=== PATIENT | female | born 1985 | race Caucasian/White ===

== ENCOUNTER 2019-10-22 01:40 | Inpatient (IN) | payer BC ==
[~2019-10-22] VITALS: Ht 162.6 cm; Wt 80.0 kg
[2019-10-22] MEDS ORDERED: D5%-LACTATED RINGERS 1,000 ML IV SCH (02:13)
[2019-10-22] MEDS ORDERED: OXYTOCIN 30U/ 0.9% NaCL 500ML 500 ML IV ONE (02:13)
[2019-10-22] MEDS ORDERED: MISOPROSTOL 200 MCG TABLET ONE ×2 (02:17→07:26)
[2019-10-22] MEDS ORDERED: OXYTOCIN 30U/ 0.9% NaCL 500ML 500 ML ONE ×2 (02:17→15:21)
[2019-10-22] MEDS ORDERED: LIDOCAINE 1%, 20ML ONE (02:17)
[2019-10-22] MEDS ORDERED: METOCLOPRAMIDE 5 MG/ML, 2ML IVPush PRN (02:30)
[2019-10-22] MEDS ORDERED: TERBUTALINE 1 MG/ML, 1ML SQ PRN (02:30)
[2019-10-22] MEDS ORDERED: ALUMINUM/MAG/SIMETHICONE 30 ML UDC PO PRN (02:30)
[2019-10-22] MEDS ORDERED: CALCIUM CARBONATE 500 MG TAB.CHEW PO PRN (02:30)
[2019-10-22] MEDS ORDERED: TERBUTALINE 1 MG/ML, 1ML IVPush PRN (02:30)
[2019-10-22] MEDS ORDERED: SODIUM CHLORIDE FLUSH 10ML SYR IVF PRN (02:30)
[2019-10-22] MEDS ORDERED: SODIUM CITRATE/CITRIC ACID 30 ML UDC PO PRN (02:30)
[2019-10-22] MEDS ORDERED: FENTANYL PF 100 MCG/2ML IV PRN (02:30)
[2019-10-22] MEDS ORDERED: ONDANSETRON 2MG/ML, 2ML IVPush PRN (02:30)
[2019-10-22 02:57] LABS: BASOPHILS # (AUTO) 0.03 x10^3/uL (0-0.1); BASOPHILS % (AUTO) 0 % (0-1); EOSINOPHILS # (AUTO) 0.01 x10^3/uL (0-0.4); EOSINOPHILS % (AUTO) 0 % (1-7); LYMPHOCYTES % (AUTO) 11 % (22-44); MD NO; MEAN CORPUSCULAR HEMOGLOBIN 34.5 pg (27.0-34.8); MEAN CORPUSCULAR HGB CONC 33.4 g/dL (32.4-35.8); MEAN CORPUSCULAR VOLUME 103.2 fL (80-100); MEAN PLATELET VOLUME 9.5 fL (7.4-10.4); MONOCYTES # (AUTO) 0.65 x10^3/uL (0.2-0.8); MONOCYTES % (AUTO) 5 % (2-9); NEUTROPHILS # (AUTO) 12.06 x10^3/uL (1.8-6.8); NEUTROPHILS % (AUTO) 84 % (42-75); PLATELET COUNT 224 x10^3/uL (130-400); RED CELL DISTRIBUTION WIDTH 12.8 % (9.6-15.2)
[2019-10-22 03:00] VITALS: BP 142/92
[2019-10-22] MEDS ORDERED: FENTANYL PF 100 MCG/2ML ONE ×6 (07:22→18:04)
[2019-10-22] MEDS: FENTANYL PF 100 MCG/2ML IVPush PRN ×4 (07:36→11:50)
[2019-10-22] MEDS ORDERED: PREN1TAB60 PO (08:08)
[2019-10-22] MEDS ORDERED: VIT1CAPS44 PO (08:09)
[2019-10-22] MEDS ORDERED: CHOL400C PO (08:12)
[2019-10-22] MEDS ORDERED: FENTANYL/BUPIV./NS/PF 250 ML EPIDCONT SCH ×2 (13:22→15:04)
[2019-10-22] MEDS ORDERED: FENTANYL PF 500 MCG, BUPIVACAINE/PF 0.5%, 30ML 62.5 ML in SODIUM CHLORIDE 0.9% 177.5 ML EPIDCONT SCH (13:30)
[2019-10-22] MEDS: LACTATED RINGERS 1,000 ML IV SCH ×3 (13:39→19:52)
[2019-10-22] MEDS ORDERED: BUPIVACAINE 0.25% ONE (13:50)
[2019-10-22] MEDS ORDERED: AZITHROMYCIN 500 MG in SODIUM CHLORIDE 0.9% 250 ML IV ONE (14:30)
[2019-10-22] MEDS ORDERED: LACTATED RINGERS 1,000 ML IV SCH ×3 (15:04→18:19)
[2019-10-22] MEDS ORDERED: METOCLOPRAMIDE 5 MG/ML, 2ML ONE (15:21)
[2019-10-22] MEDS ORDERED: SODIUM CITRATE/CITRIC ACID 30 ML UDC ONE (15:21)
[2019-10-22] MEDS ORDERED: EPHEDRINE 50 MG/ML, 1ML IVPush PRN (15:30)
[2019-10-22] MEDS ORDERED: METOCLOPRAMIDE 5 MG/ML, 2ML IV ONE (18:00)
[2019-10-22] MEDS ORDERED: SODIUM CITRATE/CITRIC ACID 30 ML UDC PO ONE (18:00)
[2019-10-22] MEDS ORDERED: morphine SULFATE/PF 0.5 MG/ML, 10ML ONE (18:04)
[2019-10-22] MEDS ORDERED: LIDOCAINE-MPF 2% ,5ML ONE (18:14)
[2019-10-22] MEDS ORDERED: PHENYLEPHRINE 10 MG/ML ONE (18:14)
[2019-10-22] MEDS ORDERED: OXYTOCIN 10 UNITS/ML, 1ML ONE (18:14)
[2019-10-22] MEDS ORDERED: EPHEDRINE 50 MG/ML, 1ML ONE (18:14)
[2019-10-22] MEDS ORDERED: BUPIVACAINE/PF 0.25% ONE (18:14)
[2019-10-22] MEDS ORDERED: CEFAZOLIN 1,000 MG ONE (18:14)
[2019-10-22] MEDS ORDERED: WATER-INJECTION,STERILE 10 ML IV ONE (18:14)
[2019-10-22] MEDS ORDERED: OXYTOCIN 30U/ 0.9% NaCL 500ML 500 ML IV SCH (18:19)
[2019-10-22] MEDS ORDERED: morphine SULFATE 10 MG/ML, 1ML IV PRN (18:30)
[2019-10-22] MEDS ORDERED: ACETAMINOPHEN 325 MG TABLET PO PRN ×2 (18:30)
[2019-10-22] MEDS ORDERED: CARBOPROST TROMETHAMINE 250 MCG/ML, 1ML IM PRN (18:30)
[2019-10-22] MEDS ORDERED: MISOPROSTOL 200 MCG TABLET PR PRN ×2 (18:30→20:00)
[2019-10-22] MEDS ORDERED: OXYcodone IR 5MG TABLET PO PRN (18:30)
[2019-10-22] MEDS ORDERED: ONDANSETRON 2MG/ML, 2ML IV PRN (18:30)
[2019-10-22] MEDS ORDERED: KETOROLAC 30 MG/1 ML IV SCH (18:30)
[2019-10-22 19:48] LABS: MEAN CORPUSCULAR HEMOGLOBIN 34.4 pg (27.0-34.8); MEAN CORPUSCULAR HGB CONC 33.2 g/dL (32.4-35.8); MEAN CORPUSCULAR VOLUME 103.6 fL (80-100); MEAN PLATELET VOLUME 8.6 fL (7.4-10.4); PLATELET COUNT 211 x10^3/uL (130-400); RED BLOOD COUNT 3.06 x10^6/uL (3.82-5.3); RED CELL DISTRIBUTION WIDTH 12.9 % (9.6-15.2)
[2019-10-22 20:05] LABS: BASOPHILS # (AUTO) 0.02 x10^3/uL (0-0.1); BASOPHILS % (AUTO) 0 % (0-1); EOSINOPHILS % (AUTO) 0 % (1-7); LYMPHOCYTES # (AUTO) 1.09 x10^3/uL (1-3.4); LYMPHOCYTES % (AUTO) 5 % (22-44); MD SCAN; MONOCYTES # (AUTO) 0.88 x10^3/uL (0.2-0.8); MONOCYTES % (AUTO) 4 % (2-9); NEUTROPHILS # (AUTO) 20.71 x10^3/uL (1.8-6.8); NEUTROPHILS % (AUTO) 91 % (42-75)
[2019-10-22] MEDS ORDERED: OXYcodone/APAP 5/325MG TABLET ONE (20:55)
[2019-10-22] MEDS: OXYcodone/APAP 5/325MG TABLET PO PRN (20:56)
[2019-10-22 21:01] VITALS: BP 117/71
[2019-10-22 21:10] VITALS: BP 111/65
[2019-10-22 21:18] VITALS: BP 123/63
[2019-10-22 21:26] VITALS: BP 120/65
[2019-10-22 22:09] VITALS: BP 124/65
[2019-10-22] MEDS ORDERED: IBUPROFEN 600 MG TABLET ONE (23:18)
[2019-10-22] MEDS: IBUPROFEN 600 MG TABLET PO PRN (23:19)
[2019-10-23 00:14] LABS: MEAN CORPUSCULAR HEMOGLOBIN 33.7 pg (27.0-34.8); MEAN CORPUSCULAR HGB CONC 33.7 g/dL (32.4-35.8); MEAN PLATELET VOLUME 8.9 fL (7.4-10.4); PLATELET COUNT 180 x10^3/uL (130-400); RED BLOOD COUNT 2.86 x10^6/uL (3.82-5.3); RED CELL DISTRIBUTION WIDTH 14.6 % (9.6-15.2)
[2019-10-23 00:28] LABS: BAND#(MANUAL) 1.36 x10^3/uL; BANDS%(MANUAL) 6 % (0-7); LYMPH#(MANUAL) 0.91 x10^3/uL (1-3.4); LYMPHS% (MANUAL) 4 % (22-44); MD YES; MONOS#(MANUAL) 0.45 x10^3/uL (0.3-2.7); MONOS% (MANUAL) 2 % (2-9); SEG#(MANUAL) 19.98 x10^3/uL (1.8-6.8); SEGS% (MANUAL) 88 % (42-75)
[2019-10-23 00:29] LABS: <PLATELET ESTIMATE> ADEQUATE; ANISOCYTOSIS 1+; LARGE PLATELETS 1+; POLYCHROMASIA 1+
[2019-10-23] MEDS ORDERED: CEFAZOLIN 2,000 MG in SODIUM CHLORIDE 0.9% 50 ML IV SCH (01:00)
[2019-10-23] MEDS ORDERED: CEFAZOLIN PMX 2GM/50ML 50 ML IVPB SCH (01:00)
[2019-10-23] MEDS ORDERED: OXYcodone/APAP 5/325MG TABLET ONE (04:41)
[2019-10-23] MEDS: OXYcodone/APAP 5/325MG TABLET PO PRN ×4 (04:42→19:50)
[2019-10-23 06:18] LABS: MEAN CORPUSCULAR HEMOGLOBIN 33.6 pg (27.0-34.8); MEAN CORPUSCULAR HGB CONC 33.2 g/dL (32.4-35.8); MEAN CORPUSCULAR VOLUME 101.2 fL (80-100); MEAN PLATELET VOLUME 9.4 fL (7.4-10.4); PLATELET COUNT 174 x10^3/uL (130-400); RED BLOOD COUNT 2.68 x10^6/uL (3.82-5.3); RED CELL DISTRIBUTION WIDTH 14.6 % (9.6-15.2)
[2019-10-23 06:51] LABS: MD YES
[2019-10-23 07:01] LABS: ANISOCYTOSIS 1+; BANDS%(MANUAL) 2 % (0-7); LYMPH#(MANUAL) 2.81 x10^3/uL (1-3.4); LYMPHS% (MANUAL) 14 % (22-44); MONOS% (MANUAL) 4 % (2-9); SEG#(MANUAL) 16.08 x10^3/uL (1.8-6.8); SEGS% (MANUAL) 80 % (42-75)
[2019-10-23 07:02] LABS: <PLATELET ESTIMATE> ADEQUATE; <PLT MORPHOLOGY> NORMAL PLT MORPH
[2019-10-23 07:40] VITALS: BP 122/71
[2019-10-23] MEDS: PRENATAL VIT/IRON/FA 1 EACH TABLET PO SCH (09:00)
[2019-10-23] MEDS: IBUPROFEN 600 MG TABLET PO PRN ×3 (10:49→21:54)
[2019-10-23 12:00] VITALS: BP 137/75
[2019-10-23 16:00] VITALS: BP 130/72
[2019-10-23 16:10] LABS: BASOPHILS # (AUTO) 0.03 x10^3/uL (0-0.1); BASOPHILS % (AUTO) 0 % (0-1); EOSINOPHILS % (AUTO) 0 % (1-7); LYMPHOCYTES # (AUTO) 1.76 x10^3/uL (1-3.4); LYMPHOCYTES % (AUTO) 12 % (22-44); MD NO; MEAN CORPUSCULAR HEMOGLOBIN 33.8 pg (27.0-34.8); MEAN CORPUSCULAR HGB CONC 33.3 g/dL (32.4-35.8); MEAN CORPUSCULAR VOLUME 101.6 fL (80-100); MEAN PLATELET VOLUME 8.2 fL (7.4-10.4); MONOCYTES # (AUTO) 0.75 x10^3/uL (0.2-0.8); MONOCYTES % (AUTO) 5 % (2-9); NEUTROPHILS # (AUTO) 11.85 x10^3/uL (1.8-6.8); NEUTROPHILS % (AUTO) 82 % (42-75); PLATELET COUNT 178 x10^3/uL (130-400); RED BLOOD COUNT 2.45 x10^6/uL (3.82-5.3); RED CELL DISTRIBUTION WIDTH 14.5 % (9.6-15.2)
[2019-10-23 19:50] VITALS: BP 124/86
[2019-10-23] MEDS: DOCUSATE 100 MG CAPSULE PO PRN (19:50)
[2019-10-23] MEDS: SIMETHICONE 80 MG CHEW TAB PO PRN (19:50)
[2019-10-24] MEDS: OXYcodone/APAP 5/325MG TABLET PO PRN ×5 (00:20→19:09)
[2019-10-24] MEDS: IBUPROFEN 600 MG TABLET PO PRN ×3 (05:03→19:09)
[2019-10-24] MEDS: PRENATAL VIT/IRON/FA 1 EACH TABLET PO SCH (08:07)
[2019-10-24] MEDS: DOCUSATE 100 MG CAPSULE PO PRN ×2 (08:07→19:09)
[2019-10-24 08:25] VITALS: BP 121/78
[2019-10-24] MEDS: SIMETHICONE 80 MG CHEW TAB PO PRN (19:08)
[2019-10-24 19:30] VITALS: BP 131/86
[2019-10-25] MEDS: IBUPROFEN 600 MG TABLET PO PRN (03:41)
[2019-10-25] MEDS: OXYcodone/APAP 5/325MG TABLET PO PRN ×2 (07:32→11:30)
[2019-10-25 07:35] VITALS: BP 147/84
[2019-10-25] MEDS: PRENATAL VIT/IRON/FA 1 EACH TABLET PO SCH (09:00)
[2019-10-25] MEDS: DOCUSATE 100 MG CAPSULE PO PRN (11:09)
[2019-10-25] MEDS ORDERED: OXYC-302 PO (12:48)
[2019-10-25] MEDS ORDERED: IBUP-1222 PO (12:48)
== END 2019-10-25 14:00 | disposition home or self-care (01) | DRG 788 ==
LOC: LDOP 01:40 → LDIP 02:21 → 2NE 22:01 → 2NW 10-23 10:45
PROVIDERS: ADMIT Obstetrics & Gynecology; ATTEND Obstetrics & Gynecology
PROC: 10D00Z1 Extraction of Products of Conception, Low, Open Approach (ICD-10-PCS; principal; 2019-10-22)
PROC: 30233N0 Transfusion of Autologous Red Blood Cells into Peripheral Vein, Percutaneous Approach (ICD-10-PCS; 2019-10-22)
DX: O62.1 Secondary uterine inertia (principal); O63.1 Prolonged second stage (of labor); O77.0 Labor and delivery complicated by meconium in amniotic fluid; Z37.0 Single live birth; Z3A.41 41 weeks gestation of pregnancy; Z88.8 Allergy status to other drugs, medicaments and biological substances
CPT/HCPCS: 36415; J7121; S0020; 85025; 86592; 86850; 86900; 86923; G0378; J0456; J0690; J2274; J3010; J3490; J2370; J2590; J2765; J7050; J7120; P9016

== ENCOUNTER 2020-02-22 14:03 | Emergency (ER) | payer BC ==
[~2020-02-22] VITALS: Ht 170.2 cm; Wt 68.0 kg
[~2020-02-22 14:03] MED LIST: CHOL400C PO; IBUP-1222 PO; OXYC-302 PO; PREN1TAB60 PO; VIT1CAPS44 PO
--- NOTE | 2020-02-22 14:15 | NUR ---
PT ARRIVED IN EMS RESTRAINTS. RESTRAINT PROCEDURE EXPLAINED TO PT PER JULIAN BARRAZA. SECURITY OUTSIDE ROOM. RESTRAINTS REMOVED. PT STOOD UP & TRIED TO EXIT ROOM; INSTRUCTED TO RETURN TO [facility]; PT REFUSED. SECURITY CALLED IN, ASSISTED PT TO [facility]. PT FIGHTING SECURITY, RESTRAINTS PLACED. PT YELLING "I NEED JONES, I NEED JONES!" "I NEED TEQUILLA" "I NEED MONEY".
--- NOTE | 2020-02-22 14:25 | NUR ---
PT UNCOOPERATIVE; FIGHTING AGAINST RESTRAINTS. CONTINUES TO STATE "I NEED JONES" "I NEED TEQUILLA" "I NEED MONEY" "I WANT OUT OF HERE". PT INFORMED SHE MAY NOT LEAVE AT THIS TIME.
--- NOTE | 2020-02-22 14:28 | NUR ---
BELONGINGS BAGGED (PANTS, SOCKS, SLIPPERS, SILVER-COLORED WATCH, SUNGLASSES); WILL BE PLACED IN ED LOCKER. TOP & BRA WERE CUT OFF.
--- NOTE | 2020-02-22 14:35 | NUR ---
CAROLE MCBRIDE BS. PT WAS BRIEFLY COOPERATIVE WITH QUESTIONS. CONTINUES TO FIGHT RESTRAINTS.
--- NOTE | 2020-02-22 14:51 | NUR ---
PT CONTINUING TO YELL OUT, VERY LOUDLY AND TO FIGHT RESTRAINTS. PROVIDER NOTIFIED.
[2020-02-22] MEDS ORDERED: ZIPRASIDONE 20 MG INJ IM ONE ×2 (14:52→15:00)
--- NOTE | 2020-02-22 15:02 | NUR ---
ANGELINA GIVEN PER EMAR. PT CONTINUING TO YELL OUT. PERSON'S NAME "NO MORE FUCKING JONES!" "MY IS DAPHNIE MUSK".
[2020-02-22 15:25] LABS: BASOPHILS # (AUTO) 0.02 x10^3/uL (0-0.1); BASOPHILS % (AUTO) 0 % (0-1); EOSINOPHILS % (AUTO) 0 % (1-7); LYMPHOCYTES # (AUTO) 1.15 x10^3/uL (1-3.4); LYMPHOCYTES % (AUTO) 9 % (22-44); MD NO; MEAN CORPUSCULAR HEMOGLOBIN 31.1 pg (27.0-34.8); MEAN CORPUSCULAR VOLUME 94.1 fL (80-100); MEAN PLATELET VOLUME 8.2 fL (7.4-10.4); MONOCYTES # (AUTO) 0.42 x10^3/uL (0.2-0.8); MONOCYTES % (AUTO) 3 % (2-9); NEUTROPHILS # (AUTO) 11.76 x10^3/uL (1.8-6.8); NEUTROPHILS % (AUTO) 88 % (42-75); PLATELET COUNT 324 x10^3/uL (130-400); RED BLOOD COUNT 4.65 x10^6/uL (3.82-5.3); RED CELL DISTRIBUTION WIDTH 15.1 % (9.6-15.2)
--- NOTE | 2020-02-22 15:32 | NUR ---
PT CONTINUES TO YELL AND STRUGGLE AGAINST RESTRAINTS. CALMLY INFORMED PT THAT HER YELLING IS UNACCEPTABLE AND SHE NEEDS TO STOP. PT DID NOT REPLY.
[2020-02-22 15:37] LABS: ALBUMIN 4.1 g/dL (3.4-5.0); CALCIUM 9.2 mg/dL (8.5-10.1); CHLORIDE 100 mmol/L (98-107)
--- NOTE | 2020-02-22 15:44 | NUR ---
WATER OFFERED TO PT; PT REFUSED. PT CONTINUING TO YELL OUT AND STRUGGLE AGAINST RESTRAINTS. INSISTING ON BEING LET OUT OF RESTRAINTS. DENIES DRUG USE. DENIES MED HX.
[2020-02-22 15:45] LABS: ALANINE AMINOTRANSFERASE 30 U/L (12-78); ALKALINE PHOSPHATASE 85 U/L (45-117); ANION GAP 15 mmol/L (5-15); BILIRUBIN,TOTAL 0.5 mg/dL (0.2-1.0); TOTAL PROTEIN 8.1 g/dL (6.4-8.2)
[2020-02-22 15:46] LABS: SALICYLATE LEVEL < 1.7 mg/dL (2.8-20.0)
--- NOTE | 2020-02-22 15:46 | NUR ---
PT YELLING AT THE TOP OF HER VOICE SAYING "I NEED SOME FUCKING JONES!" "MY IS DAPHNIE MUSK" "I NEED MY DAUGHTER".
[2020-02-22] MEDS ORDERED: DIPHENHYDRAMINE 50 MG/ML, 1ML ONE (15:52)
[2020-02-22] MEDS ORDERED: LORazepam 2 MG/ML, 1ML ONE (15:52)
--- NOTE | 2020-02-22 15:56 | NUR ---
THROUGHPUT: [facility] CALLED, WILL TAKE PT BACK WHEN MEDICALLY CLEARED.
--- NOTE | 2020-02-22 15:58 | NUR ---
BENADRYL AND ATIVAN GIVEN PER EMAR. PT DEMANDING "YOU NEED TO UNCHAIN ME RIGHT NOW". "MY DAUGHTER CAMERON IS OUT THERE, CAN I PLEASE HAVE HER? I HEAR SELIN OUT THERE"
[2020-02-22] MEDS ORDERED: DIPHENHYDRAMINE 50 MG/ML, 1ML IVPush ONE (16:00)
[2020-02-22] MEDS ORDERED: LORazepam 2 MG/ML, 1ML IVPush ONE (16:00)
--- NOTE | 2020-02-22 16:25 | NUR ---
PT CONTINUING TO DEMAND RELEASE FROM RESTRAINTS. WHEN ASKED IF SHE WOULD LEAVE IF RESTRAINTS WERE REMOVED, PT REPLIED "YES". INFORMED PT THAT SHE'S ON A LEGAL HOLD AND IF SHE LEAVES, POLICE WOULD HAVE TO BE CALLED TO RETURN HER TO ED. PT ARGUED AGAINST INFORMATION.
--- NOTE | 2020-02-22 16:28 | NUR ---
CALLED SECURITY FOR READJUSTMENT OF RESTRAINTS.
--- NOTE | 2020-02-22 16:43 | NUR ---
PT YELLING "NO MORE JONES! NO MORE JONES!" "MY IS DAPHNIE HEATH" ARM POSITION CHANGED; LOCKING RESTRAINTS REMAIN. PT AGAIN VERBALIZED THAT SHE WOULD LEAVE IF RESTRAINTS REMOVED. SOFT RESTRAINTS APPLIED TO ANKLES. SITTER OUTSIDE ROOM.
--- NOTE | 2020-02-22 16:45 | NUR ---
PT REPORT TO EL VELASCO RN. PT CARE TRANSFERRED.
--- NOTE | 2020-02-22 17:02 | NUR ---
BREAK RN: PT OUT OF LOWER RESTRAINTS WITH 2-POINT RESTRAINS IN PLACE BILATERAL WRISTS. AT THIS TIME PT HAS EYES CLOSED AND LYING STILL IN GURNEY, BREATHING EVEN AND UNLABORED.
--- NOTE | 2020-02-22 17:36 | NUR ---
CATH UA SPECIMEN OBTAINED W/ ASSISTANCE FROM JULIAN VELASCO. SECURITY CALLED TO RELEASE RESTRAINTS SO THAT PT MAY USE THE BR.
--- NOTE | 2020-02-22 17:45 | NUR ---
SECURITY REMOVED ARM RESTRAINTS. PT AMBULATORY TO & FROM BR W/OUT INCIDENT. INFORMED PT LONG SHE IS COOPERATIVE, RESTRAINTS WOULD STAY OFF. WATER PROVIDED. PT REFUSED OFFER OF DINNER, AT THIS TIME. SITTER OUTSIDE ROOM.
[2020-02-22 17:58] LABS: AMPHETAMINE SCREEN, URINE Negative (Negative); BARBITURATE SCREEN, URINE Negative (Negative); BENZODIAZEPINE SCREEN, URINE Positive (Negative); CANNABINOID SCREEN, URINE Negative (Negative); COCAINE SCREEN, URINE Positive (Negative); METHADONE SCREEN, URINE Negative (Negative); OPIATE SCREEN, URINE Negative (Negative)
--- NOTE | 2020-02-22 18:36 | NUR ---
PT SITTING QUIETLY ON GURNEY. REQUESTS TO SPEAK TO PHYSICIAN; ERP WILL BE NOTIFIED. WATER BOTTLE ON TABLE AT BS.
--- NOTE | 2020-02-22 18:42 | NUR ---
DINNER TRAY ORDERED.
--- NOTE | 2020-02-22 19:55 | NUR ---
TELEPSYCH MONITOR IN PT ROOM. PT SITTING QUIETLY ON GURCHAFFEE. SITTER OUTSIDE ROOM
--- NOTE | 2020-02-22 20:19 | NUR ---
DR SALCEDO (TELEPSYCH) CALLED FOR PT REPORT.
--- NOTE | 2020-02-22 20:22 | NUR ---
TELEPSYCH CONFERENCE INITIATED.
--- NOTE | 2020-02-22 21:37 | NUR ---
PT SLEEPING. CALL LIGHT W/IN REACH. SITTER OUTSIDE ROOM.
--- NOTE | 2020-02-22 21:43 | NUR ---
PT NOTIFIED OF PENDING TRANSPORT BACK TO [facility]
--- NOTE | 2020-02-22 21:57 | NUR ---
TP: PT ACCEPTED TO [facility]. PAPERS FAXED AND ARRANGING TRANSPORT
--- NOTE | 2020-02-22 22:02 | NUR ---
PT REPORT TO MADI Paz RN AT [facility]. PT AWAITING TRANSPORT TO THAT FACILITY.
--- NOTE | 2020-02-22 22:13 | NUR ---
REPORT FROM JULIAN CHUNG
--- NOTE | 2020-02-22 22:14 | NUR ---
PT REPORT TO JULIAN GARCIA. PT CARE TRANSFERRED.
--- NOTE | 2020-02-22 22:36 | NUR ---
PT RESTING ON GURNEY WITH EYES CLOSED, RESPIRATIONS EVEN AND NONLABORED.
[2020-02-22 23:24] VITALS: BP 124/58
== END 2020-02-22 23:27 | disposition home or self-care (01) ==
LOC: ED 17:21
DX: F14.150 Cocaine abuse with cocaine-induced psychotic disorder with delusions (principal); F14 Cocaine related disorders; G47.00 Insomnia, unspecified; F23 Brief psychotic disorder; R41.82 Altered mental status, unspecified
CPT/HCPCS: 36415; 80053; 80307; 84703; 85025; 96372; 96374; 96375; 99285; J1200; J2060; J3486